=== PATIENT | male | born 1985 | race Two or more races ===

== ENCOUNTER → 2024-11-01 | Outpatient (CLI) | payer OTHER, SELFPAY ==
--- NOTE | 2024-11-01 13:36 | XR_ITS ---
Examination: Knee bilateral, 4 views Technique: Knee AP, lateral, each knee total 4 views Date and time of exam: November 01, 2024 1426 hours INDICATIONS: Bilateral knee pain beginning 2 weeks ago, surgery left knee March 2024 FINDINGS: No fracture or dislocation involving either knee Mild bilateral spurring of the intracondylar spines No significant joint narrowing No fracture IMPRESSION: Minimal arthritic change No fracture
== END | disposition home or self-care (01) ==
PROVIDERS: PCP Family Medicine; Referring Provider Physician Assistant; Visit Provider Physician Assistant
DX: M13.862 Other specified arthritis, left knee (principal); M13.861 Other specified arthritis, right knee
CPT/HCPCS: 73560